=== PATIENT | male | born 1955 | race African-American/Black ===

== ENCOUNTER 2019-02-27 17:28 | Inpatient (IN) | payer OTHER ==
[~2019-02-27] VITALS: Ht 182.9 cm; Wt 83.9 kg
[2019-02-27 17:30] VITALS: BP 178/117
[2019-02-27 17:56] LABS: ABSOLUTE NEUTROPHILS 7.6 thou/uL (1.4-8.2); BASOPHILS 0.2 % (0.0-2.0); EOSINOPHILS 0.1 % (0.0-3.0); HEMATOCRIT 44.1 % (42.0-52.0); HEMOGLOBIN 14.9 gm/dL (14.0-18.0); LYMPHOCYTES 4.8 % (24.0-44.0); MCH 31.5 pg (26.0-34.0); MCHC 33.8 g/dL (28.0-37.0); MCV 93.1 fL (80.0-100.0); PLATELET COUNT 228 thou/uL (150-400); POLYS 91.9 % (36.0-66.0); RBC 4.74 mil/uL (4.50-6.00); RDW 15.7 % (10.5-14.5); WBC 8.3 thou/uL (4.0-11.0)
[2019-02-27 18:03] LABS: AMP/METHAMP Negative (Negative); BARBITURATES Negative (Negative); BENZODIAZEPINES Negative (Negative); COCAINE Negative (Negative); METHADONE Negative (Negative); OPIATES Negative (Negative); PCP Negative (Negative)
[2019-02-27 18:04] LABS: ANION GAP 13 mmol/L (7-16); BUN 16 mg/dL (7-18); CALCIUM 9.5 mg/dL (8.5-10.1); CHLORIDE 102 mmol/L (98-107); CO2 23 mmol/L (21-32); CREATININE 1.2 mg/dL (0.7-1.3); GLUCOSE 176 mg/dL (74-106); POTASSIUM 4.1 mmol/L (3.5-5.1); SODIUM 138 mmol/L (136-145)
--- NOTE | 2019-02-27 18:09 | EKG ---
[address] [address] ELECTROCARDIOGRAM REPORT Name: TONY ANDRES Room #: [facility].#: [id number] ������������������ Admission: ������������������ Attend Phys: Discharge: ������������������ Date of : 51 Report #: [id number] ����������������������������������������������������������������� [id number] THIS REPORT FOR: //name// [facility] ED Test Date: 2019-02-27 Test Time: 17:52:09 Pat Name: TONY ANDRES Department: Room: Gender: Showroom Executive Director: JOAN : 1955 Requested By: Melissa Ryder Order Number: [id number] MD: Brian Dubois Measurements Intervals [place] Rate: 74 P: 50 DC: 177 QRS: 65 QRSD: 93 T: 43 QT: 418 QTc: 464 Interpretive Statements Sinus rhythm Compared to ECG 12/14/2002 07:53:31 Sinus arrhythmia no longer present Electronically Signed On 02-27-2019 18:09:32 CDT by Brian Dubois [email or web address] ��������������������������������������������� <ELECTRONICALLY SIGNED> ���������������������������������������� By: Brian Dubois MD ��������������������������������������������� 02/27/19 1809 175 175 MD CONG Whittaker
[2019-02-27 18:13] LABS: SGOT 28 U/L (15-37); SGPT 27 U/L (30-65); TOTAL BILIRUBIN 0.7 mg/dL (<0.1-1.0); TOTAL PROTEIN 8.1 g/dL (6.4-8.2); TROPONIN-I <0.06 ng/mL (<0.06)
[2019-02-27 21:58] LABS: CHOLESTEROL 235 mg/dL (<200); HDL CHOLESTEROL 62 mg/dL (>40); LDL CHOLESTEROL 161 mg/dL (<100); TC:HDL 3.8 Ratio (Not establshd); TRIGLYCERIDE 60 mg/dL (<150); VLDL 12 mg/dL (<40)
[2019-02-27 21:59] LABS: SERUM ASSESSMENT Slight Lipemia
[2019-02-27 22:00] VITALS: BP 162/104
[2019-02-27 22:24] LABS: FOLIC ACID 22.2 ng/mL (8.6-58.9); TSH 1.652 uIU/mL (0.358-3.740)
[2019-02-27 22:45] VITALS: BP 173/103
[2019-02-28] VITALS (8 sets, daily range): BP systolic 126–172; BP diastolic 93–121
[2019-02-28] MEDS ORDERED: LOSARTAN-HCTZ1 EAC2 PO (01:22)
[2019-02-28 05:49] LABS: CALCIUM 9.2 mg/dL (8.5-10.1); CREATININE 1.2 mg/dL (0.7-1.3); POTASSIUM 3.6 mmol/L (3.5-5.1)
--- NOTE | 2019-02-28 06:20 | NUR ---
admit pt admitted to room 450 from ed being admitted with chest pain, nausea and vomiting. Had drank a pint of whiskey during day while doing yard work with nothng to eat. sustained a fall and has a laceration and abrasions to right thigh. bp elevated and prn hydralazine given as ordered. pt slept most of night after admission complete. ivf's infusing as ordered continue poc.
--- NOTE | 2019-02-28 09:35 | NUR ---
chart review, cm consult. cm visit with pt at bedside. intro to cm, transition of care and dcp. noted pt had been working with physical therapy. pt a & o x 3, and able to make his needs know. eddie at bedside as well. noted in becoming tearful during visit " this never happened to me, scary, only had 1 medication for bp and i havent taken it in 3mo because did not like the feeling when took it. see dr bowers at [facility], been going there for years. live in house, 10 step into house, then 5 up and 5 down. independent when feeling ok. have some canes. drive. manage own medication. have good insurance. need something for this dizziness in my eye"/omar. education on resources for drugs/ethol " no need for that. i have 2 drinks everyday, nothing else. i am ok thank you"/pt. cm passed on to bedside nurse that pt c/o of dizziness of eyes. pt cont working with physical therapy with use of walker. will cont following as needed for dc need. pt stated " am i going home today"/pt education that will discuss with and if needs arise for dcp, cm team would revisit. " ok thank you"/omar. dcp home
[2019-02-28 11:10] LABS: GLYCOHEMOGLOBIN (HGB A1C) 5.7 % (4.8-5.6)
--- NOTE | 2019-02-28 11:29 | NUR ---
Assumed pt care this am, is at the bedside, bp was elevated medications given. Pt went down for the MRI and is convinced that he will go home today. Advised pt and the that diagnostics are being done and there is no assurane he will go be going home today. No nausea or vomiting noted. Pt has and wound / scratch on his left thigh to his leg, cleaned and wiped with betadine. Pt requested for aspirin due to his eyes wondering around, seen by Dr. Chase was advised to wait for neuro consult.
--- NOTE | 2019-02-28 16:54 | 2DMMODE ---
[facility] [employer] [place] [address] 2 D/M-MODE ECHOCARDIOGRAM Name: TONY ANDRES Room #: 450-P [facility] IN ..#: [id number] ������������� Admission: 02/27/19 ������������� Attend Phys: Neil Romero MD Discharge: ��� ������������� ��� Date of : 51 Date of Service: 02/28/19 1654 �� Report #: [id number] �������� ��������������������������������������������[id number] THIS REPORT FOR: //name// APPROVED REPORT Study performed: 02/28/2019 15:43:02 EXAM: Comprehensive 2D, Doppler, and color-flow Echocardiogram Patient Location: Bedside Room #: [facility] Status: routine BSA: 2.06 HR: 82 bpm BP: 154/100 mmHg Rhythm: NSR Other Information Study Quality: Technically Difficult Indications CVA/TIA Hypertension/HDD Echo Enhancing Agent Indication: Rule out Shunt Agent(s) / Amount(s) Used: Agitated Saline 7 cc Aortic Valve AoV Peak Raúl.: 1.15 m/s AO Peak Gr.: 5.25 mmHg LVOT Max P.97 mmHg LVOT Max V: 1.00 m/s Mitral Valve E/A Ratio: 0.9 MV Decel. Time: 286.48 ms MV E Max Raúl.: 0.65 m/s MV A Raúl.: 0.70 m/s MV PHT: 83.08 ms IVRT: 119.95 ms Pulmonary Vein P Vein S: 0.54 m/s P Vein A: 0.21 m/s P Vein D: 0.28 m/s P Vein A Dur.: 101.5 msec P Vein S/D Ratio: 1.93 [facility] [address] [address] 2 D/M-MODE ECHOCARDIOGRAM Name: TONY ANDRES Room #: 450-P [facility]M IN [facility].#: [id number] ������������� Admission: 02/27/19 ������������� Attend Phys: Neil Romero MD Discharge: ��� ������������� ��� Date of : 51 Date of Service: 02/28/19 1654 �� Report #: [id number] �������� ��������������������������������������������[id number] Left Ventricle The left ventricle is normal size. There is normal LV segmental wall motion. There is normal left ventricular wall thickness. The left ventricular systolic function is normal. The left ventricular ejection fraction is within the normal range. LVEF is 55-60%. Mild diastolic dysfunction is present (impaired relaxation pattern). Right Ventricle The right ventricle is normal size. The right ventricular systolic function is normal. Atria The left atrium size is normal. No shunting by contrast bubble injection The right atrium size is normal. Aortic Valve The aortic valve is normal in structure. No aortic regurgitation is present. There is no aortic valvular stenosis. Mitral Valve The mitral valve is normal in structure. There is no mitral valve regurgitation noted. No evidence of mitral valve stenosis. Tricuspid Valve The tricuspid valve is normal in structure. There is no tricuspid valve regurgitation noted. Pulmonic Valve Pulmonic valve is not well visualized. Great Vessels The aortic root is normal in size. IVC is normal in size and collapses >50% with inspiration. Pericardium There is no pericardial effusion. <Conclusion> The left ventricular systolic function is normal. There is normal LV segmental wall motion. LVEF is 55-60%. Mild diastolic dysfunction No shunting by contrast bubble injection The aortic valve is normal in structure. No aortic regurgitation or stenosis. The mitral valve is normal in structure. No mitral valve [facility] [employer] [place] [address] 2 D/M-MODE ECHOCARDIOGRAM Name: MCKENNATONY Jenny Room #: 450-P [facility] IN .R.#: [id number] ������������� Admission: 02/27/19 ������������� Attend Phys: Neil Romero MD Discharge: ��� ������������� ��� Date of : 51 Date of Service: 02/28/191653 �� Report #: [id number] �������� ��������������������������������������������[id number] regurgitation Pulmonary artery pressure could not be reliably ascertained. There is no pericardial effusion. ��������������������������������������������� <ELECTRONICALLY SIGNED> ���������������������������������������� By: José Garrido MD, [facility] ��������������������������������������������� 02/28/191653 [birth year] José Garrido MD, FACC /INF
[2019-03-01] VITALS (7 sets, daily range): BP systolic 143–157; BP diastolic 97–111
--- NOTE | 2019-03-01 04:18 | NUR ---
Pt. rested quietly during the night when checked on during frequent rounds. He offers no c/o pain or discomfort. He did refuse his lovenox injection and pt. educated on the importance of this medication. Bed alarm is on.
[2019-03-01 09:08] LABS: HEMOGLOBIN 15.7 gm/dL (14.0-18.0); MCH 31.4 pg (26.0-34.0); MCHC 33.5 g/dL (28.0-37.0); MCV 93.7 fL (80.0-100.0); RBC 5.01 mil/uL (4.50-6.00); RDW 15.7 % (10.5-14.5); WBC 6.3 thou/uL (4.0-11.0)
[2019-03-01 09:15] LABS: CALCIUM 9.4 mg/dL (8.5-10.1); CREATININE 1.3 mg/dL (0.7-1.3); POTASSIUM 3.8 mmol/L (3.5-5.1)
[2019-03-01] MEDS ORDERED: FOLIC ACID1 MG PO (15:05)
[2019-03-01] MEDS ORDERED: LOSARTAN-HCTZ1 EAC2 PO (15:05)
[2019-03-01] MEDS ORDERED: PEPCID20 MG PO (15:05)
[2019-03-01] MEDS ORDERED: LIPITOR 20 MG T20 M1 PO (15:05)
[2019-03-01] MEDS ORDERED: ASA5UEC PO (15:05)
[2019-03-01] MEDS ORDERED: VITAMIN B-1100 M2 PO (15:05)
--- NOTE | 2019-03-01 15:38 | NUR ---
CARE TEAM INDICATED THAT PT IS MEDICALLY STABLE TO DISHCARGE HOME WITH HIS SPOUSE THIS DAY. PT INDICATED PT WOULD BENEFIT FORM A FRONT WHEELED WALKER FOR HOME USE UPON DC. CM ORDERED FWW THROUGH [employer] AND IT WAS DELIVERED PTD. NO OTHER CM INTERVENTION INDICATED AT THIS TIME. CASE CLOSED.
--- NOTE | 2019-03-01 19:09 | NUR ---
PT DISCHARGED HOME WITH . PT A&OX4, VSS, NO SIGNS OF DISTRESS, DENIES PAIN. BLOOD PRESSURE HAS DECREASED WITH MEDICATION. PT SENT HOME WITH PRESCRIPTIONS AND ALSO UNDERSTANDS DISCHARGE PAPERWORK WELL. PT IS TO RECHECK BLOOD PRESSURE DAILY AND REPORT IT TO PRIMARY IN A WEEK. ALL BELONGINGS WITH PT. TELE MONITOR AND IV REMOVED.
[2019-03-02 18:08] LABS: SYPHILIS AB Negative (Negative)
--- NOTE | 2019-03-03 14:06 | HC ---
[facility] [place] [address] CONSULTATION Name: TONY ANDRES Room #: 450-P [facility] IN ..#: [id number] Admission: 02/27/19 ������������������ Attend Phys: Neil Romero MD Discharge: 03/01/19 ������������������ Date of : 51 Report #: [id number] THIS REPORT FOR: //name// CC: Neil Pacheco DATE OF SERVICE: 02/28/2019 HISTORY OF PRESENT ILLNESS: This is a 63-year-old male patient who was evaluated by me for an episode he had yesterday. He indicated that he had a walking difficulty. He had some headache. He also had some chest pain, which has since become better. The patient's symptoms were moderately severe. They came spontaneously without any trauma. REVIEW OF SYSTEMS: Indicate that he has hypertension. His compliance is questionable at best. He drinks a significant amount of alcohol. He had some dizziness and some diplopia, which is becoming better. He had some nausea, vomiting and cold sweats, which has become better. When this happened, he was also spraying chemicals. He denies any prior history of stroke. REVIEW OF SYSTEMS: A 14-point review of system was carried out. He complained of some symptoms in the eye region. He does not have any ENT, , musculoskeletal, constitutional, dermatological, hematological, psychiatric, throat, allergic symptom associated with present symptomatology, he had some shortness of breath when it happened. FAMILY HISTORY: Negative for any stroke or heart attack. FAMILY HISTORY: Negative for any early age stroke. SOCIAL HISTORY: He smokes marijuana and he drinks a large amount of alcohol. PHYSICAL EXAMINATION: NEUROLOGICAL: Indicates he is alert, responsive, able to follow simple and complex command. His speech, concentration, fund of knowledge and memory is at his baseline. His cranial nerve examination 2 through 12 looks unremarkable except he may have some nystagmus. His strength, sensation, reflexes and tone is symmetrical. His Zhxein-kg-vdkr looks unremarkable. I could not look at the fundus very well. GENERAL: He is a well-developed individual who does not have any dysmorphic features of eyes, ears and face. HEENT: His vision and hearing looks adequate. He has some diplopia. EXTREMITIES: His pulses are difficult to feel, but I believe are all palpable. He has no edema, cyanosis or jaundice. NECK: He has no thyroid masses. CARDIAC: Examination is unremarkable. [address] [address] CONSULTATION Name: TONY ANDRES Room #: 450-P [facility]#: [id number] Admission: 02/27/19 ������������������ Attend Phys: Neil Romero MD Discharge: 03/01/19 ������������������ Date of : 51 Report #: [id number] LUNGS: No respiratory difficulty or rhonchi was noticed. VITAL SIGNS: His last blood pressure was 154/100, respiration was 20, pulse is 50 and temperature is 98. LABORATORY DATA: His white count is normal and his sodium is normal. He had a CT angiogram of the head and neck and an MRI of the brain, which was reviewed. MRI of the brain demonstrated findings consistent with a brainstem stroke. He has pretty extensive chronic changes. IMPRESSION: 1. Brainstem cerebrovascular accident. 2. Multiple other problems including the possibility of exposure to the chemicals while spraying. 3. Alcohol abuse and substance abuse. RECOMMENDATIONS: 1. Aspirin. 2. Thiamine. 3. Folic acid. 4. We will see what the PT, OT says in this patient. 5. Do some other blood workup. 6. We will suggest intensive statin therapy in this patient. All of it was discussed with him in detail and he wants to follow this plan. Thank you very much for this referral. ��������������������������������������������� <ELECTRONICALLY SIGNED> ���������������������������������������� By: Britton Figueroa MD ��������������������������������������������� 03/03/19 1406 1453 0250 Britton Figueroa MD /nt
[2019-03-06 14:10] LABS: ANA INTERPRETATION Negative (Negative)
== END 2019-03-01 16:00 | disposition home or self-care (01) | DRG 64 ==
LOC: ER 17:28 → EROBS 20:36 → 4W 20:36 → ENTRNSPT 03-01 15:49 → EDTRNSPTSTS 03-01 15:51 → 4W 03-01 16:00
PROVIDERS: Internal Medicine; Nurse Practitioner Family; Psychiatry & Neurology Neuromuscular Medicine; Student in an Organized Health Care Education/Training Program; ADMIT Hospitalist
DX: I63.9 Cerebral infarction, unspecified (principal); G93.41 Metabolic encephalopathy; R27.0 Ataxia, unspecified; I10 Essential (primary) hypertension; F12.90 Cannabis use, unspecified, uncomplicated; F10.10 Alcohol abuse, uncomplicated; Z77.098 Contact with and (suspected) exposure to other hazardous, chiefly nonmedicinal, chemicals; Z80.9 Family history of malignant neoplasm, unspecified; Z79.82 Long term (current) use of aspirin; Z79.899 Other long term (current) drug therapy; Z91.14 Patient's other noncompliance with medication regimen
CPT/HCPCS: 10045